=== PATIENT | male | born 1990 | race Asian ===

== ENCOUNTER 2017-09-26 10:43 | Emergency (ER) | payer OTHER ==
[~2017-09-26] VITALS: Ht 170.2 cm; Wt 74.6 kg
[2017-09-26 10:49] VITALS: Ht 170.2 cm; Wt 74.6 kg
[2017-09-26] MEDS ORDERED: LIDOCAINE/MYLANTA 40 ML BTL PO ONE (12:30)
[2017-09-26] MEDS ORDERED: ONDANSETRON (ODT) 4 MG TAB ODT STA (12:30)
--- NOTE | 2017-09-26 13:08 | ERD ---
ER Documentation Chief Complaint Chief Complaint vomiting and abdominal pain x 2 weeks after meals HPI This is a 26-year-old male who presents the emergency department today complaining of intermittent abdominal pain for the past 2 weeks. States that he vomits every time he eats and that is his biggest concern. Denies any fevers or chills, dysuria. States he smokes marijuana 3-4 times a week but has not done as much recently. ROS All systems reviewed and are negative except as per history of present illness. Medications Home Meds Active Scripts Acetaminophen* (Tylophen*) 500 Mg Capsule, 1 CAP PO Q6H Y for PAIN AND OR ELEVATED TEMP, #30 CAP Prov:SG MERINO PA-C 09/26/17 Pantoprazole* (Protonix*) 40 Mg Tablet.dr, 40 MG PO DAILY, #14 TAB Prov:SG MERINO PA-C 09/26/17 Ondansetron Hcl* (Zofran*) 4 Mg Tablet, 4 MG PO Q6H for NAUSEA AND/OR VOMITING, #30 TAB Prov:SG MERINO PA-C 09/26/17 PMhx/Soc Medical and Surgical Hx: pt denies Medical Hx, pt denies Surgical Hx History of Surgery: No Anesthesia Reaction: No Hx Neurological Disorder: No Hx Respiratory Disorders: No Hx Cardiac Disorders: No Hx Psychiatric Problems: No Hx Miscellaneous Medical Probl: No Hx Alcohol Use: No Hx Substance Use: No Hx Tobacco Use: No Smoking Status: Never smoker Physical Exam Vitals Vital Signs Date Time Temp Pulse Resp B/P Pulse Ox O2 Delivery O2 Flow Rate FiO2 09/26/17 10:49 98.1 65 18 158/92 97 Physical Exam Const: NAD Head: Atraumatic Eyes: Normal Conjunctiva ENT: Normal External Ears, Nose and Mouth. Neck: Full range of motion..~ No meningismus. Resp: Clear to auscultation bilaterally Cardio: Regular rate and rhythm, no murmurs Abd: Soft, mild epigastric tenderness, non distended. Normal bowel sounds. Lower abdominal pain or tenderness at McBurney's. No right upper quadrant pain. Skin: No petechiae or rashes Back: No midline or flank tenderness Ext: No cyanosis, or edema Neur: Awake and alert Psych: Normal Mood and Affect Result Diagram: 09/26/17 1300 09/26/17 1300 Results 24 hrs Laboratory Tests Test 09/26/17 13:00 White Blood Count 7.510^3/ul Red Blood Count 5.1310^6/ul Hemoglobin 15.7g/dl Hematocrit 46.0% Mean Corpuscular Volume 89.7fl Mean Corpuscular Hemoglobin 30.6pg Mean Corpuscular Hemoglobin Concent 34.1g/dl Red Cell Distribution Width 12.0% Platelet Count 51435^3/UL Mean Platelet Volume 10.2fl Neutrophils % 43.7% Lymphocytes % 26.1% Monocytes % 4.6% Eosinophils % 24.4% Basophils % 1.1% Nucleated Red Blood Cells % 0.0/100WBC Neutrophils # 3.310^3/ul Lymphocytes # 2.010^3/ul Monocytes # 0.410^3/ul Eosinophils # 1.810^3/ul Basophils # 0.110^3/ul Nucleated Red Blood Cells # 0.010^3/ul Urine Color YELLOW Urine Clarity CLEAR Urine pH 5.0 Urine Specific [place] 1.031 Urine Ketones 1+mg/dL Urine Nitrite NEGATIVEmg/dL Urine Bilirubin NEGATIVEmg/dL Urine Urobilinogen NEGATIVEmg/dL Urine Leukocyte Esterase NEGATIVELeu/ul Urine Microscopic RBC 0/HPF Urine Microscopic WBC 2/HPF Urine Bacteria FEW/HPF Urine Mucus MANY/HPF Urine Hemoglobin NEGATIVEmg/dL Urine Glucose NEGATIVEmg/dL Urine Total Protein 1+mg/dl Sodium Level 144mmol/L Potassium Level 4.0mmol/L Chloride Level 104mmol/L Carbon Dioxide Level 28mmol/L Anion Gap 16 Blood Urea Nitrogen 19mg/dl Creatinine 0.90mg/dl Glucose Level 91mg/dl Calcium Level 9.4mg/dl Total Bilirubin 1.4mg/dl Direct Bilirubin 0.00mg/dl Indirect Bilirubin 1.4mg/dl Aspartate Amino Transf (AST/SGOT) 20IU/L Alanine Aminotransferase (ALT/SGPT) 31IU/L Alkaline Phosphatase 56IU/L Total Protein 8.0g/dl Albumin 4.6g/dl Globulin 3.40g/dl Albumin/Globulin Ratio 1.35 Lipase 43U/L Current Medications Medications (Trade) Dose Ordered Sig/Jonatan Route PRN Reason Start Time Stop Time Status Last Admin Dose Admin Ondansetron HCl (Zofran Odt) 4 mg ONCE STAT ODT 09/26/17 12:30 09/26/17 12:33 DC 09/26/17 12:45 Miscellaneous Medication (Gi Cocktail (2)) 40 ml ONCE ONCE PO 09/26/17 12:30 09/26/17 12:33 DC 09/26/17 12:45 DIAGNOSTIC IMAGING REPORT Patient: ZAC MUJICA : 1990 Age: 26 Sex: M MR #: [id number] DOS: 09/26/17 1458 Ordering MD: SG MERINO PA-C Location: [facility] Room/Bed: PROCEDURE: CT ABDOMEN AND PELVIS WITHOUT CONTRAST. CLINICAL INDICATION: Abdominal pain with vomiting TECHNIQUE: CT scan of the abdomen and pelvis without contrast was performed on a multidetector high-resolution CT scanner. The patient was scanned without intravenous contrast. Coronal and sagittal reformatted images were obtained from the axial source images. Images were reviewed on a high-resolution PACS workstation. The total exam CTDI equals 9.3 mGy and the total exam DLP equals 554 mGy-cm. One or more of the following dose reduction techniques were used: Automated exposure control. Adjustment of the mA and/or kV according to patient size. Use of iterative reconstruction technique. DICOM images are available COMPARISON: None FINDINGS: CT abdomen: The lung bases are clear. The heart size is within limits. There is no significant pericardial effusion. Hepatic morphology is within limits. No gross contour deforming masses. Gallbladder is unremarkable. No evidence of intrahepatic or extrahepatic biliary dilatation. The spleen and pancreas are within normal limits. Both adrenal glands are within normal limits. Both kidneys are in normal anatomic position. No evidence of obstruction or hydronephrosis. No gross renal/ureteric calculi. The visualized GI tract demonstrate normal caliber loops of small and large bowel. No evidence of bowel obstruction. The appendix is within normal limits. The unenhanced aorta is unremarkable. No significant retroperitoneal lymphadenopathy. CT pelvis: The bladder is within normal limits. The prostate gland is normal size. The rectosigmoid colon is within normal limits. No significant free fluid. No significant pelvic lymphadenopathy. The visualized osseous structures, appears to be within normal limits. IMPRESSION: 1. No evidence of acute intra-abdominal/pelvic inflammatory process. No evidence of bowel obstruction. The appendix is within normal limits. 2. No free fluid or free air. No gross focal fluid collections. 3. Otherwise, unremarkable unenhanced CT scan of the abdomen/pelvis. 4. If there is concern for gallstones, ultrasound would be more sensitive. RPTAT: AAPP Physician Sherri Date Time Electronically viewed and signed by Adela Sosa Physician on 09/26/2017 15:39 JL/ CC: SG MERINO PA-C Procedures/[facility] This a 26-year-old male presents the emergency department today complaining of intermittent abdominal pain for the past 2 weeks as well as nausea and vomiting after every meal. States he cannot eat. On exam patient had some very mild epigastric tenderness. . I did obtain laboratory workup. Laboratory workup elevated white blood cell count. He is not anemic. Platelets are within normal limits. Electrolytes are within normal limits. Glucose is within normal limits. Liver enzymes are within normal limits. Lipase is within normal limits. Bilirubin is very mildly elevated. UA is negative for infection Patient was given Zofran and a GI cocktail here in the emergency department. He was drinking fluids without vomiting. Patient was given the vague information as to when he was having this abdominal pain and how long it occurred for and given that he states that sometimes he has difficulty with eating and he has sudden onset vomiting afterwards was no nausea I did obtain CT scan. CT abdomen pelvis shows no evidence of acute intra-abdominal pelvic inflammatory process. There is no evidence of bowel obstruction. Appendix is within normal limits. There is no free air or free fluid. Otherwise unremarkable. Symptoms at this time consistent with intermittent abdominal pain and vomiting of uncertain etiology. Patient did endorse smoking marijuana 3-4 times a week and I have explained to him that he needs to stop smoking marijuana as this may be causing worsening of symptoms. I explained to him that he should follow-up with his primary care doctor Dr. Bryant in October for possible referral to GI specialist. I have also given her a list of resources for GI specialty. Patient given a prescription for Zofran and protonix for home At this time the patient is stable for discharge and outpatient management. Patient should follow up with their PCP in the next 1-2 days. They may return to the emergency department sooner for any persistent or worsening of symptoms. Patient understood and agreed with the plan. Discussed the patient with Dr. Álvarez and he is in agreement with the plan. Departure Diagnosis: Primary Impression: Abdominal pain Abdominal location: epigastric Qualified Code: R10.13 - Epigastric pain Additional Impression: Vomiting Vomiting type: unspecified Vomiting Intractability: non-intractable Nausea presence: unspecified Qualified Code: R11.10 - Non-intractable vomiting, presence of nausea not specified, unspecified vomiting type Condition: SG Zamarripa PA-C Sep 26, 2017 13:08
[2017-09-26 13:19] LABS: BASOPHIL # 0.1 10^3/ul (0.0-0.1); BASOPHILS % 1.1 % (0.0-2.0); EOSINOPHILS # 1.8 10^3/ul (0.0-0.5); EOSINOPHILS % 24.4 % (0.0-7.0); HEMOGLOBIN 15.7 g/dl (14.0-18.0); LYMPHOCYTES % 26.1 % (15.0-51.0); MEAN CORPUSCULAR HEMOGLOBIN 30.6 pg (29.0-33.0); MEAN CORPUSCULAR HGB CONC 34.1 g/dl (32.0-37.0); MEAN CORPUSCULAR VOLUME 89.7 fl (82.0-101.0); MEAN PLATELET VOLUME 10.2 fl (7.4-10.4); MONOCYTE # 0.4 10^3/ul (0.3-0.9); MONOCYTES % 4.6 % (0.0-11.0); NEUTROPHIL # 3.3 10^3/ul (1.6-7.5); NEUTROPHILS % 43.7 % (39.0-77.0); PLATELET COUNT 252 10^3/UL (140-415); RED BLOOD COUNT 5.13 10^6/ul (4.70-6.10); WHITE BLOOD COUNT 7.5 10^3/ul (4.8-10.8)
[2017-09-26 13:28] LABS: ADD UMIC YES; UR ASCORBIC ACID NEGATIVE (NEGATIVE); UR BACTERIA FEW /HPF (NONE SEEN); UR BILIRUBIN (Dip) NEGATIVE (NEGATIVE); UR BLOOD (Dip) NEGATIVE (NEGATIVE); UR CLARITY CLEAR (CLEAR); UR COLOR YELLOW (YELLOW); UR GLUCOSE (Dip) NEGATIVE (NEGATIVE); UR KETONES (Dip) 1+ mg/dL (NEGATIVE); UR LEUKOCYTE ESTERASE (Dip) NEGATIVE Leu/ul (NEGATIVE); UR MUCUS MANY /HPF (NONE SEEN); UR NITRITE (Dip) NEGATIVE (NEGATIVE); UR RBC 0 /HPF (0-5); UR SPECIFIC GRAVITY (Dip) 1.031 (1.003-1.030); UR TOTAL PROTEIN (Dip) 1+ mg/dl (NEGATIVE); UR UROBILINOGEN (Dip) NEGATIVE (NEGATIVE)
[2017-09-26 13:38] LABS: ALBUMIN 4.6 g/dl (3.3-4.9); ALBUMIN/GLOBULIN RATIO 1.35; BILIRUBIN,INDIRECT 1.4 mg/dl (0-1.1); BILIRUBIN,TOTAL 1.4 mg/dl (0.2-1.3); CALCIUM 9.4 mg/dl (8.4-10.2); CREATININE 0.9 mg/dl (0.61-1.24)
--- NOTE | 2017-09-26 15:39 | RADRPT ---
PROCEDURE: CT ABDOMEN AND PELVIS WITHOUT CONTRAST. CLINICAL INDICATION: Abdominal pain with vomiting TECHNIQUE: CT scan of the abdomen and pelvis without contrast was performed on a multidetector hig h-resolution CT scanner. The patient was scanned without intravenous contrast. Coronal and sagittal reformatted images were obtained from the axial source images. Images were reviewed on a high-resol [employer] PACS workstation. The total exam CTDI equals 9.3 mGy and the total exam DLP equals 554 mGy-cm. One or more of the following dose reduction techniques were used: Automated exposure control. Adjustment of the mA and/or kV according to patient size. Use of iterative reconstruction technique. DICOM images are available COMPARISON: None FINDINGS: CT abdomen: The lung bases are clear. The heart size is within limits. There is no significant pericardial effus ion. Hepatic morphology is within limits. No gross contour deforming masses. Gallbladder is unremarkable. No evidence of intrahepatic or extrahepatic biliary dilatation. The spleen and pancreas are within normal limits. Both adrenal glands are within normal limits. Both kidneys are in normal anatomic position. No evidence of obstruction or hydronephrosis. No gross renal/ureteric calculi. The visualized GI tract demonstrate normal caliber loops of small and large bowel. No evidence of parag wel obstruction. The appendix is within normal limits. The unenhanced aorta is unremarkable. No significant retroperitoneal lymphadenopathy. CT pelvis: The bladder is within normal limits. The prostate gland is normal size. The rectosigmoid colon is wi thin normal limits. No significant free fluid. No significant pelvic lymphadenopathy. The visualized osseous structures, appears to be within normal limits. IMPRESSION: 1. No evidence of acute intra-abdominal/pelvic inflammatory process. No evidence of bowel obstructio n. The appendix is within normal limits. 2. No free fluid or free air. No gross focal fluid collections. 3. Otherwise, unremarkable unenhanced CT scan of the abdomen/pelvis. 4. If there is concern for gallstones, ultrasound would be more sensitive. RPTAT: AAPP Physician Sherri Date Time Electronically viewed and signed by Physician Sherri on 09/26/2017 15:39 JL/
[2017-09-26] MEDS ORDERED: ONDA4TAB8 PO (15:46)
[2017-09-26] MEDS ORDERED: PANT40TA3 PO (15:47)
[2017-09-26] MEDS ORDERED: ACET500C5 PO (15:48)
[2017-09-26 15:59] VITALS: BP 125/73; PULSE 60; RESP 18; TEMP 98.1
== END 2017-09-26 16:00 | disposition home or self-care (01) ==
LOC: FTE 10:43
DX: R10.13 Epigastric pain (principal); R11.10 Vomiting, unspecified
CPT/HCPCS: 36415; 74176; 80053; 81001; 83690; 85025; Z7502; Z7610